=== PATIENT | male | born 1980 | race Caucasian/White ===

== ENCOUNTER 2016-10-19 05:08 | Emergency (ER) | payer BC ==
--- NOTE | 2016-10-19 05:41 | ERNOTE ---
Chest Pain/Cardiac HPI Chief Complaint: Palpitations Time Seen by Provider: 10/19/16 05:26 Immunizations: IMMUNIZATION HX Immunizations Up to Date No Allergies/Adverse Reactions: Allergies No Known Allergies Allergy (Unverified 12/07/14 05:35) Home Medications: HOME MEDICATIONS NK [No Home Medication] 12/07/14 [Last Taken Unknown] Narrative: here for sudden shortness of breath after reading about blood clots in the lungs. He does suffer from anxiety and he came in feeling short of breath and had lips and fingertips tingling. he is breathing very rapidly and states he feels nervous. Review of Systems - Review of Systems Constitutional: Present: fatigue EYE: Present: no symptoms reported ENT: Present: no symptoms reported Respiratory: Present: See HPI Cardiology: Present: no symptoms reported Gastrointestinal/Abdominal: Present: no symptoms reported Neurological: Present: other - fingertips feel "tingly" he has circumoral tingling and numbness Psych: Present: anxiety - Patient's Past Medical History Patient History - Medical: No pertinent hx, Anxiety - Family History Grandfather-Maternal Family History - Cardiac/Respiratory: Myocardial Infarction - Social History Living Situations: home Smoking Status: Current some day smoker - Immunizations Immunizations Up to Date: No Physical Exam - Physical Exam General Appearance: Present: wd/wn, alert, other - extremely anxious and rapidly breathing and pale. his fingertips are in near carpopedal spams position ED Progress - Vital Signs Patient's Vital Signs:: I have reviewed the patient's vital signs. Vital Signs: Vital Signs 10/19/16 10/19/16 10/19/16 05:10 05:14 05:29 Temperature 36.8 C Pulse Rate 82 79 90 Respiratory 21 H 22 H Rate Blood Pressure 144/96 144/80 O2 Sat by Pulse 100 100 Oximetry - EKG EKG: NSR - Progress/Reassessment Chief Complaint: Palpitations Plan - Plan Plan: This patient is having acute hyperventilation syndrome and after breathing into a bag for two minutes his symptoms completely resolved Departure - Departure Clinical Impression: Hyperventilation syndrome Disposition: Home self-care Condition: Good Instructions: Hyperventilation
[2016-10-19 06:30] VITALS: BP 140/82
== END 2016-10-19 06:10 | disposition home or self-care (01) ==
LOC: ER 05:08
DX: F45.8 Other somatoform disorders (principal); Z72.0 Tobacco use